=== PATIENT | male | born 2000 | race American Indian/Alaskan Native ===

== ENCOUNTER 2018-01-07 17:16 | Emergency (ER) | payer SELFPAY ==
[2018-01-07 17:51] VITALS: BP 126/82
--- NOTE | 2018-01-07 19:37 | Emergency Department Report ---
ED Chest Pain HPI - General Chief Complaint: Chest Pain Stated Complaint: CHEST PAIN Time Seen by Provider: 01/07/18 19:36 Source: patient, family Mode of arrival: Ambulatory Limitations: No Limitations - History of Present Illness Initial Comments: 17-year-old -[place] male comes in complaining of chest pains that is intermittent achy to be sharp with deep breaths. 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 Patient does admit to having a sour taste in his mouth. Does admit to not eating the healthiest diet. He reports he is active. MD Complaint: chest pain -: month(s) Onset: during rest Pain Location: substernal Pain Radiation: none Severity scale (0 -10): 6 Quality: aching (intermittent), sharp (with deep breath), pressure Improves With: nothing Worsens With: inspiration Other Symptoms: acid taste in mouth Treatments Prior to Arrival: none Aspirin use within the Past 7 Days: (0) No - Related Data On Oral Contraceptives: No Previous Rx's Medication Instructions Recorded Last Taken Type Famotidine [Pepcid] 20 mg PO BID #40 tablet 01/07/18 Unknown Rx Ibuprofen [Motrin 600 MG tab] 600 mg PO Q8H PRN #30 tablet 01/07/18 Unknown Rx Allergies Allergy/AdvReac Type Severity Reaction Status Date / Time No Known Allergies Allergy Unverified 01/07/18 19:47 Heart Score - HEART Score History: Slightly suspicious EKG: Normal Age: < 45 Risk factors: No known risk factors Troponin: < normal limit HEART Score: 0 ED Review of Systems ROS: Stated complaint: CHEST PAIN Other details as noted in HPI Constitutional: denies: chills, fever Eyes: denies: eye pain, eye discharge, vision change ENT: denies: ear pain, throat pain Respiratory: denies: cough, shortness of breath, wheezing Cardiovascular: chest pain. denies: palpitations, dyspnea on exertion, orthopnea, edema Endocrine: no symptoms reported Gastrointestinal: denies: abdominal pain, nausea, diarrhea Genitourinary: denies: urgency, dysuria Musculoskeletal: denies: back pain, joint swelling, arthralgia Skin: denies: rash, lesions Neurological: as per HPI Psychiatric: denies: anxiety, depression Hematological/Lymphatic: denies: easy bleeding, easy bruising ED Past Medical Hx - Past Medical History Additional medical history: Costocondritis - Surgical History Past Surgical History?: No - Social History Smoking Status: Never Smoker Substance Use Type: Alcohol - Medications Home Medications: Home Medications Medication Instructions Recorded Confirmed Last Taken Type Famotidine [Pepcid] 20 mg PO BID #40 tablet 01/07/18 Unknown Rx Ibuprofen [Motrin 600 MG tab] 600 mg PO Q8H PRN #30 tablet 01/07/18 Unknown Rx ED Physical Exam - General Limitations: No Limitations General appearance: alert, in no apparent distress - Head Head exam: Present: atraumatic, normocephalic - Eye Eye exam: Present: normal appearance, EOMI - ENT ENT exam: Present: mucous membranes moist - Neck Neck exam: Present: normal inspection, full ROM - Respiratory Respiratory exam: Present: normal lung sounds bilaterally. Absent: respiratory distress - Cardiovascular Cardiovascular Exam: Present: regular rate, normal rhythm. Absent: systolic murmur, diastolic murmur, rubs, gallop - Extremities Exam Extremities exam: Present: normal inspection, full ROM - Back Exam Back exam: Present: normal inspection, full ROM - Neurological Exam Neurological exam: Present: alert, oriented X3 - Psychiatric Psychiatric exam: Present: normal affect, normal mood - Skin Skin exam: Present: warm, dry, intact, normal color. Absent: rash ED Course Vital Signs 01/07/18 17:45 Temperature 98.6 F Pulse Rate 65 Respiratory 18 Rate Blood Pressure 126/82 O2 Sat by Pulse 100 Oximetry - Reevaluation(s) Reevaluation #1: 01/07/18 21:31 Patient reports that he feels somewhat better. ED Medical Decision Making - Medical Decision Making 17-year-old male comes in for chest wall discomfort that has been chronic. Chest x-ray ordered, troponin level ordered d-dimer ordered Pepcid order 20 mg by mouth as well as Motrin 600 mg by mouth. All labs have come back negative chest x-ray shows normal. Discussed the patient that he needs to follow back up with her primary care provider. Discussed the patient he can continue with the Pepcid which is [id number] since it has helped with the stomach and chest discomfort. Patient verbalizes understanding. Critical Care Time: No Critical care attestation.: If time is entered above; I have spent that time in minutes in the direct care of this critically ill patient, excluding procedure time. ED Disposition Clinical Impression: Chest wall discomfort Disposition: DC-01 TO HOME OR SELFCARE Is pt being admited?: No Does the pt Need Aspirin: No Condition: Stable Instructions: Chest Pain (ED), Costochondritis (ED) Additional Instructions: Please take medication as prescribed and as needed. Follow up with her primary care provider for further evaluation. Prescriptions: Famotidine [Pepcid] 20 mg PO BID #40 tablet Ibuprofen [Motrin 600 MG tab] 600 mg PO Q8H PRN #30 tablet PRN Reason: Pain Referrals: PRIMARY CARE,MD [Primary Care Provider] - 3-5 Days [facility] [Provider Group] - 3-5 Days Forms: Work/School Release Form(ED), Accompanied Note
[2018-01-07] MEDS ORDERED: PEPCID PO ONE (19:47)
[2018-01-07] MEDS ORDERED: MOTRIN PO ONE (19:47)
--- NOTE | 2018-01-07 21:12 | XRay Report ---
FINAL REPORT PROCEDURE: XR CHEST ROUTINE 2V TECHNIQUE: PA and lateral chest radiographs were obtained. CPT 74501 HISTORY: chest pain COMPARISON: No prior studies are available for comparison. FINDINGS: Heart: Normal. Mediastinum/Vessels: Normal. Lungs/Pleural space: Lungs are clear. There are no infiltrates, effusions or pneumothoraces.. Bony thorax: No acute osseous abnormality. Other: IMPRESSION: Normal heart and lungs..
== END 2018-01-07 21:40 | disposition home or self-care (01) ==
LOC: ED 17:16
DX: R07.89 Other chest pain (principal)
CPT/HCPCS: 36415; 71046; 84484; 85379; 93005; 93010